=== PATIENT | male | born 1935 | race Caucasian/White ===

== ENCOUNTER 2020-07-16 16:35 | Observation (INO) ==
[2020-07-16] MEDS ORDERED: Ondansetron 4 MG/2 ML VIAL IVP PRN (21:29)
[2020-07-16] MEDS ORDERED: Naloxone 0.4 MG/ML INJ IVP PRN (21:29)
[2020-07-16] MEDS ORDERED: Melatonin 3 MG TABLET PO PRN (21:29)
[2020-07-17 05:06] LABS: Basophils % 0.6 %; Eosinophils # 0.6 K/mcL (0.0-0.6); Eosinophils % 11.2 %; Hematocrit 31.2 % (37.5-50.1); Hemoglobin 10.4 g/dL (12.9-16.9); Immature Granulocytes % 0.4 % (0-4); Lymphocytes # 1.2 K/mcL (0.6-4.6); Lymphocytes % 21.4 %; Mean Corpuscular HGB Conc 33.3 g/dL (31.6-35.5); Mean Platelet Volume 10.4 fL (9.4-12.4); Monocytes # 0.5 K/mcL (0.0-1.3); Monocytes % 8.3 %; Neutrophils # 3.2 K/mcL (1.6-8.9); Platelet Count 105 K/mcL (140-400); Red Blood Count 3.06 M/mcL (4.19-5.50); Red Cell Distribution Width 12.3 % (11.5-14.5); Segmented Neutrophils % 58.1 %; White Blood Count 5.4 K/mcL (4.3-11.1)
[2020-07-17 05:13] LABS: INR 1.1; Prothrombin Time 12.6 Seconds (9.4-12.1)
[2020-07-17 05:15] LABS: Activated Partial Thrombo Time 26.3 Seconds (26.0-36.0)
[2020-07-17 05:21] LABS: Albumin 3.8 g/dL (3.5-5.7); Albumin/Globulin Ratio 1.7 (1.1-2.2); Bilirubin,Total 0.5 mg/dL (0.3-1.0); Calcium 8.5 mg/dL (8.6-10.3); Globulin 2.2 g/dL (2.4-3.5); Magnesium 1.9 mg/dL (1.6-2.6); Phosphorous 3.5 mg/dL (2.7-4.5); Potassium 5.6 mEq/L (3.5-5.1)
[2020-07-17] MEDS ORDERED: Calcium Gluconate 1gm/50mL 1 GM/50 ML BAG IVPB ONE (06:42)
[2020-07-17] MEDS ORDERED: Albuterol 2.5 MG/3 ML NEBULIZER IH ONE (06:42)
[2020-07-17] MEDS ORDERED: Insulin Human Regular 5 UNIT in 0.9 % Sodium Chloride 10 ML IV ONE (06:47)
[2020-07-17] MEDS ORDERED: D5% in Water 1,000 ML IVC PRN (06:47)
[2020-07-17] MEDS ORDERED: Sodium Bicarbonate 75 MEQ in 0.45 % Sodium Chloride 1,000 ML IVC SCH (07:30)
[2020-07-17] MEDS ORDERED: Thiamine (B-1) 100 MG, Folic Acid 1 MG, MVI, adult with vitamin K 10 ML in 0.9 % Sodi... IVPB SCH (09:00)
[2020-07-17] MEDS: Pantoprazole 40 MG VIAL IVP SCH ×2 (10:58→16:58)
[2020-07-17] MEDS ORDERED: *HR* Dextrose 50 % in Water (Syg) 50 ML SYRINGE IVP ONE (11:12)
[2020-07-17 11:26] LABS: Potassium 4.8 mEq/L (3.5-5.1)
[2020-07-17 11:28] LABS: Iron 97 mcg/dL (65-175)
[2020-07-17 11:38] LABS: Adenovirus Not Detected (Not Detect); Coronavirus 229E Not Detected (Not Detect); Coronavirus HKU1 Not Detected (Not Detect); Coronavirus NL63 Not Detected (Not Detect); Coronavirus OC43 Not Detected (Not Detect)
[2020-07-17 11:39] LABS: Bordetella Pertussis Not Detected (Not Detect); Chlamydophila pneumoniae Not Detected (Not Detect); Human Metapneumovirus Not Detected (Not Detect); Human Rhinovirus/Enterovirus Not Detected (Not Detect); Influenza A Subtype 2009 H1 Not Detected (Not Detect); Influenza B Not Detected (Not Detect); Mycoplasma pneumoniae Not Detected (Not Detect); Parainfluenza Virus 1 Not Detected (Not Detect); Parainfluenza Virus 2 Not Detected (Not Detect); Parainfluenza Virus 3 Not Detected (Not Detect); Parainfluenza Virus 4 Not Detected (Not Detect); Respiratory Syncytial Virus Not Detected (Not Detect); SARS-CoV-2 Not Detected (Not Detect)
[2020-07-17 11:46] LABS: Ferritin 172 ng/mL (20-250)
[2020-07-17 11:54] LABS: Folate > 22.3 ng/mL (3.0-16.0); Vitamin B12 696 pg/mL (250-1100)
[2020-07-17] MEDS ORDERED: Lidocaine -MPF 2% 2 ML VIAL ONE (12:45)
[2020-07-17] MEDS ORDERED: SODIUM CHLORIDE/NAHCO3/KCL/PEG 4,000 ML SOLN.RECON PO ONE (17:00)
[2020-07-17 18:36] LABS: Hematocrit 30.3 % (37.5-50.1); Hemoglobin 10.2 g/dL (12.9-16.9)
[2020-07-18] MEDS: Pantoprazole 40 MG VIAL IVP SCH (05:26)
[2020-07-18 06:34] LABS: Basophils % 0.3 %; Eosinophils # 0.5 K/mcL (0.0-0.6); Eosinophils % 7.6 %; Hematocrit 30.4 % (37.5-50.1); Hemoglobin 10.4 g/dL (12.9-16.9); Immature Granulocytes % 0.5 % (0-4); Lymphocytes # 1.2 K/mcL (0.6-4.6); Lymphocytes % 19.5 %; Mean Corpuscular HGB Conc 34.2 g/dL (31.6-35.5); Mean Corpuscular Hemoglobin 34.8 pg (28.0-33.3); Mean Corpuscular Volume 101.7 fL (83.0-100.0); Mean Platelet Volume 10.3 fL (9.4-12.4); Monocytes # 0.5 K/mcL (0.0-1.3); Monocytes % 8.9 %; Neutrophils # 3.8 K/mcL (1.6-8.9); Platelet Count 101 K/mcL (140-400); Red Blood Count 2.99 M/mcL (4.19-5.50); Red Cell Distribution Width 12.5 % (11.5-14.5); Segmented Neutrophils % 63.2 %; White Blood Count 5.9 K/mcL (4.3-11.1)
[2020-07-18 06:53] LABS: Calcium 8.6 mg/dL (8.6-10.3); Magnesium 1.8 mg/dL (1.6-2.6); Potassium 4.9 mEq/L (3.5-5.1)
[2020-07-18] MEDS ORDERED: hydroCHLOROthiazide 25 MG TABLET PO SCH (13:15)
[2020-07-18] MEDS ORDERED: cilostazoL 100 MG TABLET PO SCH (13:15)
[2020-07-18] MEDS ORDERED: lisinopriL 20 MG TABLET PO SCH ×2 (13:30→18:00)
[2020-07-18 14:21] VITALS: BP 118/82
[2020-07-18] MEDS ORDERED: *HR* Propofol 500 MG/50 ML BOTTLE IVP ONE (16:25)
[2020-07-18] MEDS ORDERED: Lidocaine -MPF 2% 5 ML VIAL SQ ONE (16:25)
[2020-07-18] MEDS ORDERED: Famotidine 20 MG TABLET PO SCH (18:00)
[2020-07-19] MEDS ORDERED: Magnesium Oxide 400 MG TABLET PO SCH (09:00)
== END 2020-07-18 16:26 | disposition home or self-care (01) ==
LOC: 3BNU → SUATTDRO 19:04
PROVIDERS: ADMIT Internal Medicine; ATTEND Internal Medicine
PROC: ENDOEBX (2020-07-17 12:00)